=== PATIENT | male | born 1990 | race Caucasian/White ===

== ENCOUNTER 2018-04-24 17:48 | Emergency (ER) | payer OTHER ==
[2018-04-24 17:57] VITALS: O2SAT 99
[2018-04-24 19:00] LABS: HEMOGLOBIN 16.5 g/dL (12.0-18.0); MEAN CELL VOLUME 92.4 fL (80.0-94.0); MEAN CORPUSCULAR HEMOGLOBIN 32.1 pg (27.0-31.0); MEAN CORPUSCULAR HGB CONC 34.8 g/dL (33.0-37.0); MEAN PLATELET VOLUME 6.8 fL (7.2-11.7); RBC 5.14 Mil/uL (4.40-5.90); RED CELL DISTRIBUTION WIDTH 12.8 % (11.5-14.5)
[2018-04-24 19:13] LABS: ALB/GLOB RATIO 1.5 (1.0-2.1); ALBUMIN 5.3 g/dL (3.5-5.0); ALT/SGPT 135 U/L (21-72); AST/SGOT 77 U/L (17-59); BLOOD UREA NITROGEN 8 mg/dL (9-20); CALCIUM 10.2 mg/dl (8.6-10.4); GFR NON-AFRICAN AMERICAN > 60
[2018-04-24 19:17] LABS: SQUAMOUS EPITHIAL < 1 /hpf (0-5); URINE BILIRUBIN NEGATIVE (NEGATIVE); URINE BLOOD NEGATIVE (NEGATIVE); URINE CLARITY Clear (Clear); URINE GLUCOSE (UA) NORMAL (Normal); URINE LEUKOCYTE ESTERASE NEG Leu/uL (Negative); URINE PROTEIN 1+ mg/dL (NEGATIVE); URINE UROBILINOGEN NORMAL mg/dL (0.2-1.0)
[2018-04-24 19:18] LABS: URINE COLOR YELLOW (YELLOW)
[2018-04-24] MEDS ORDERED: Sodium Chloride 0.9% 1,000 ML IV ONE (19:43)
--- NOTE | 2018-04-24 20:06 | C.PDOC ---
History Of Present Illness 28 year old male, with no significant past medical history, presents to the ED for evaluation of nausea and episodes of vomiting (non-bloody/non-bilious) and diarrhea which began yesterday morning. Patient reports experiencing diffuse abdominal pain afterwards. Patient reports his last episode of vomiting was this morning. Since then, he has been able to tolerate small amounts of water. Patient denies anorexia, fever, chills, chest pain, shortness of breath, dizziness, syncope, recent travel, known sick contact, or recent use of antibiotics. Patient states he had [place] food and was drinking "a little" alcohol 2 days ago. Time Seen by Provider: 04/24/18 18:50 Chief Complaint (Nursing): Abdominal Pain History Per: Patient History/Exam Limitations: no limitations Onset/Duration Of Symptoms: Hrs Current Symptoms Are (Timing): Still Present Location Of Pain/Discomfort: Diffuse Radiation Of Pain To:: None Quality Of Discomfort: "Pain" Associated Symptoms: Nausea, Vomiting, Diarrhea. denies: Fever, Chills, Chest Pain Recent travel outside of the [place]: No Additional History Per: Patient Past Medical History Reviewed: Historical Data, Nursing Documentation, Vital Signs Vital Signs: Last Vital Signs Temp 98.6 F 04/24/18 17:55 Pulse 102 H 04/24/18 17:55 Resp 18 04/24/18 17:55 BP 132/91 H 04/24/18 17:55 Pulse Ox 99 04/24/18 17:55 - Medical History PMH: No Chronic Diseases Surgical History: No Surg Hx Family History: States: Unknown Family Hx - Social History Hx Alcohol Use: Yes Hx Substance Use: Yes (marijuana) Review Of Systems Constitutional: Negative for: Fever, Chills Cardiovascular: Negative for: Chest Pain Respiratory: Negative for: Cough, Shortness of Breath Gastrointestinal: Positive for: Nausea, Vomiting, Abdominal Pain, Diarrhea Neurological: Negative for: Dizziness Physical Exam - Physical Exam Appears: Well, Non-toxic, No Acute Distress Skin: Normal Color, Warm, Dry Head: Atraumatic, Normacephalic Eye(s): bilateral: Normal Inspection Oral Mucosa: Dry Neck: Supple Chest: Symmetrical, No Deformity, No Tenderness Cardiovascular: Rhythm Regular, No Murmur, Other (tachycardia ) Respiratory: Normal Breath Sounds, No Rales, No Rhonchi, No Wheezing Gastrointestinal/Abdominal: Bowel Sounds, Soft, No Tenderness, No Guarding, No Rebound Extremity: Normal ROM, Capillary Refill (less than 2 seconds ) Neurological/Psych: Oriented x3, Normal Speech, Normal Cognition ED Course And Treatment - Laboratory Results Result Diagrams: 04/24/18 18:55 04/24/18 18:55 O2 Sat by Pulse Oximetry: 99 (on RA) Pulse Ox Interpretation: Normal Reevaluation Time: 21:00 (Pt sleeping, states he feels better after IVF and Bentyl. Pt is stable for d/c home, is agreeable w/POC to f/u w/pcp and RTED for new, worsening or concerning symptoms.) Reassessment Condition: Improved Medical Decision Making Medical Decision Making: Progress: Bloodwork and urinalysis ordered and reviewed and d/w patient. Bentyl PO and IV Fluids given. Disposition Counseled Patient/Family Regarding: Studies Performed, Diagnosis, Need For Followup - Disposition Referrals: Tyrone Burroughs MD [Staff Provider] - Disposition: HOME/ ROUTINE Disposition Time: 21:36 Condition: GOOD Additional Instructions: OCRINA BOLANOS, thank you for letting us take care of you today. Your provider was Ayala Almazan MD and you were treated for ABD PAIN/VOMITING. The emergency medical care you received today was directed at your acute symptoms. If you were prescribed any medication, please fill it and take as directed. It may take several days for your symptoms to resolve. Return to the Emergency Department if your symptoms worsen, do not improve, or if you have any other problems. Please contact your doctor or call one of the physicians/clinics you have been referred to that are listed on the Patient Visit Information form that is included in your discharge packet. Bring any paperwork you were given at discharge with you along with any medications you are taking to your follow up visit. Our treatment cannot replace ongoing medical care by a primary care provider outside of the emergency department. Thank you for allowing the [facility] team to be part of your care today. Prescriptions: Dicyclomine [Bentyl] 20 mg PO Q6 #20 tab Instructions: Diarrhea in Adolescents and Adults, Acute Abdomen (Belly Pain), Adult (DC), Nausea and Vomiting, Adult (DC) Forms: [facility] ([place]), General Discharge Instructions - POA Present On Arrival: None - Clinical Impression Clinical Impression: Abdominal pain, Vomiting, Diarrhea, Elevated liver enzymes - Scribe Statement The provider has reviewed the documentation as recorded by the Scribe (Maribell Christensen) Provider Attestation: All medical record entries made by the Scribe were at my direction and personally dictated by me. I have reviewed the chart and agree that the record accurately reflects my personal performance of the history, physical exam, medical decision making, and the department course for this patient. I have also personally directed, reviewed, and agree with the discharge instructions and disposition.
[2018-04-24 21:22] VITALS: BP 130/80; PULSE 99; RESP 20; TEMP 100
== END 2018-04-24 21:49 | disposition home or self-care (01) ==
LOC: C.ER 17:48
DX: R10.9 Unspecified abdominal pain (principal); R11.2 Nausea with vomiting, unspecified; R19.7 Diarrhea, unspecified; R74.8 Abnormal levels of other serum enzymes
CPT/HCPCS: 80053; 81001; 85027; 99284; J7030

== ENCOUNTER 2018-04-25 17:59 | Observation (INO) | payer OTHER ==
[2018-04-25 18:04] VITALS: BMI 25.1
[2018-04-25] MEDS ORDERED: Sodium Chloride 0.9% 1,000 ML IV ONE ×2 (19:16→21:42)
[2018-04-25] MEDS ORDERED: Sodium Chloride 0.9% 1,000 ML ONE ×2 (19:17→21:49)
--- NOTE | 2018-04-25 19:19 | C.PDOC ---
History Of Present Illness 28 year old male, with no significant past medical history, presents to the ED for evaluation of vomiting (non-bloody and non-bilious) and diarrhea which began two days ago. Patient admits to drinking with his friends a couple days prior to the onset of symptoms. Patient also reports he had some Bulgarian food prior to the onset of symptoms. Patient was evaluated in the ED yesterday for similar symptoms. While in the ED, patient did not have any episodes of vomiting or diarrhea. Patient underwent workup, and was discharged after she felt better. Patient states he went home and had some crackers; he had an appetite, but was afraid to eat more because everything "goes right through" him. Patient reports he had around 35 episodes of diarrhea and had fever today. Patient notes his abdominal pain, which was diffuse yesterday, is now mostly around his epigastrium. Patient denies back pain or urinary symptoms at this time. Time Seen by Provider: 04/25/18 19:09 Chief Complaint (Nursing): Abdominal Pain History Per: Patient History/Exam Limitations: no limitations Onset/Duration Of Symptoms: Hrs Current Symptoms Are (Timing): Still Present Location Of Pain/Discomfort: Epigastric Quality Of Discomfort: "Pain" Associated Symptoms: Fever, Diarrhea Additional History Per: Patient Past Medical History Reviewed: Historical Data, Nursing Documentation, Vital Signs Vital Signs: Last Vital Signs Temp 101.1 F H 04/25/18 18:04 Pulse 112 H 04/25/18 18:04 Resp 18 04/25/18 18:04 BP 144/93 H 04/25/18 18:04 Pulse Ox 98 04/25/18 18:04 - Medical History PMH: No Chronic Diseases Surgical History: No Surg Hx Family History: States: Unknown Family Hx - Social History Hx Alcohol Use: Yes Hx Substance Use: Yes (marijuana) - Immunization History Hx Tetanus Toxoid Vaccination: No Hx Influenza Vaccination: No Hx Pneumococcal Vaccination: No Review Of Systems Constitutional: Positive for: Fever Gastrointestinal: Positive for: Abdominal Pain, Diarrhea. Negative for: Nausea, Vomiting Physical Exam - Physical Exam Appears: Well, Non-toxic, No Acute Distress, Other (well-hydrated ) Skin: Normal Color, Warm, Dry Head: Atraumatic, Normacephalic Eye(s): bilateral: Normal Inspection Oral Mucosa: Moist Neck: Supple Chest: Symmetrical, No Deformity, No Tenderness Cardiovascular: Rhythm Regular, No Murmur Respiratory: Normal Breath Sounds, No Rales, No Rhonchi, No Wheezing Gastrointestinal/Abdominal: Bowel Sounds (normal ), Soft, Tenderness (mild, epigastric ), No Guarding, No Rebound Extremity: Normal ROM, Capillary Refill (less than 2 seconds ) Neurological/Psych: Oriented x3, Normal Speech, Normal Cognition ED Course And Treatment - Laboratory Results Result Diagrams: 04/28/18 07:12 04/28/18 07:12 O2 Sat by Pulse Oximetry: 98 (on RA) Pulse Ox Interpretation: Normal - CT Scan/US CT A/P Other Rad Studies (CT/US): Read By Radiologist, Radiology Report Reviewed CT/US Interpretation: EXAM: CT Abdomen and Pelvis with IV contrast. CLINICAL HISTORY: Nausea, vomiting and diarrhea. TECHNIQUE: Axial computed tomography images of the abdomen and pelvis with intravenous contrast. CONTRAST: With; VISI 100 MLS. COMPARISON: None provided. FINDINGS: LUNG BASES: The lung bases appear clear. No pleural effusions are seen. LIVER: Unremarkable. GALLBLADDER AND BILE DUCTS: The gallbladder appears within normal limits. No radioopaque gallstones are seen. No biliary ductal dilatation is evident. PANCR EAS: Unremarkable. SPLEEN: Unremarkable. ADRENAL GLANDS: Unremarkable. KIDNEYS, URETERS, AND BLADDER: The kidneys appear within normal limits. There is no hydronephrosis or hydroureter. No urinary calculi are seen. STOMACH AND BOWEL: Thick walled fluid filled duodenum and loops of jejunum as well as ileum compatible with enteritis. Thick walled fluid filled colon is noted with involvement of all segments compatible with diffuse pancolitis. Infectious and inflammatory etiologies are considered. APPENDIX: No evidence of acute appendicitis on CT examination. PERITONEUM: No free fluid. No free air. LYMPH NODES: No lymphadenopathy is evident. REPRODUCTIVE: Unremarkable as visu alized. VASCULATURE: No evidence of abdominal aortic aneurysm. BONES: No aggressive appearing osseous lesion. No acute osseous pathology evident. IMPRESSION: Enteritis and pancolitis. Infectious and inflammatory etiologies are considered. Medical Decision Making Medical Decision Making: Progress: Patient with temperature of 101.1F in the ED. Bloodwork, CT A/P ordered and reviewed. K-Dur PO, Morphine IVP, Tylenol PO, Zofran IVP and IV Fluids given. 23:20 CT results were discussed with patient. 23:[address] results discussed with Dr. Tracie Christensen, who accepts the patient for admission. Patient agrees with plan. Disposition Counseled Patient/Family Regarding: Studies Performed, Diagnosis - Disposition Disposition: HOSPITALIZED Disposition Time: 23:58 Condition: STABLE - Clinical Impression Clinical Impression: Pancolitis, Enteritis, Hypokalemia, Bandemia - Scribe Statement The provider has reviewed the documentation as recorded by the Scribe (Maribell Christensen) Provider Attestation: All medical record entries made by the Scribe were at my direction and personally dictated by me. I have reviewed the chart and agree that the record accurately reflects my personal performance of the history, physical exam, medical decision making, and the department course for this patient. I have also personally directed, reviewed, and agree with the discharge instructions and disposition.
[2018-04-25] MEDS ORDERED: Iodixanol 320 MG/ML 100 ML BOTTLE IV ONE (19:26)
[2018-04-25 19:48] LABS: BASO % 0.5 % (0.0-2.0); EOS % 0.2 % (0.0-4.0); HEMOGLOBIN 16.3 g/dL (12.0-18.0); LYMPH # 0.6 K/uL (1.0-4.3); LYMPH % 9.4 % (20.0-40.0); MEAN CELL VOLUME 91.5 fL (80.0-94.0); MEAN CORPUSCULAR HEMOGLOBIN 32.2 pg (27.0-31.0); MEAN CORPUSCULAR HGB CONC 35.2 g/dL (33.0-37.0); MEAN PLATELET VOLUME 7.4 fL (7.2-11.7); MONO # 0.5 K/uL (0.0-0.8); MONO % 8.5 % (0.0-10.0); NEUT # 4.9 K/uL (1.8-7.0); NEUT % 81.4 % (50.0-75.0); NRBC % 0.2 % (0.0-2.0); PLATELET COUNT 241 K/uL (130-400); RBC 5.08 Mil/uL (4.40-5.90); RED CELL DISTRIBUTION WIDTH 12.8 % (11.5-14.5)
[2018-04-25 20:23] LABS: BANDS 38 % (0-2); EOSINOPHIL 1 % (0-4); LYMPHOCYTE 8 % (20-40); MONOCYTE 4 % (0-10); NEUTROPHIL 49 % (50-75); PLATELET ESTIMATE NORMAL (NORMAL); TOTAL CELLS COUNTED 100
[2018-04-25 20:41] LABS: VENOUS BLOOD GAS BASE EXCESS -2.2 mmol/L (0.0-2.0); VENOUS BLOOD GAS PCO2 37 mmHg (40-60); VENOUS BLOOD GAS PO2 49 mm/Hg (30-55); VENOUS BLOOD PH 7.39 (7.32-7.43)
[2018-04-25 21:28] LABS: ALB/GLOB RATIO 1.6 (1.0-2.1); ALBUMIN 4.9 g/dL (3.5-5.0); ALT/SGPT 104 U/L (21-72); AST/SGOT 77 U/L (17-59); BLOOD UREA NITROGEN 5 mg/dL (9-20); CALCIUM 10.1 mg/dl (8.6-10.4); GFR NON-AFRICAN AMERICAN > 60; LIPASE 146 U/L (23-300)
[2018-04-25] MEDS ORDERED: Potassium Chloride 20 mEq ER Tab PO STA (21:42)
[2018-04-25] MEDS ORDERED: Potassium Chloride 20 mEq ER Tab PO ONE (21:50)
[2018-04-25] MEDS ORDERED: metroNIDAZOLE IV 500 mg/100 ml 500 MG/100 ML BAG IVPB STA (23:32)
[2018-04-25] MEDS ORDERED: Ciprofloxacin 400mg/200ml D5W 400 MG/200 ML BAG IVPB STA (23:32)
[2018-04-25] MEDS ORDERED: metroNIDAZOLE IV 500 mg/100 ml 500 MG/100 ML BAG ONE (23:44)
[2018-04-25] MEDS ORDERED: Ciprofloxacin 400mg/200ml D5W 400 MG/200 ML BAG IVPB ONE (23:45)
--- NOTE | 2018-04-26 10:31 | CT ---
Date of service: 04/25/2018 PROCEDURE: CT Abdomen and Pelvis with intravenous contrast HISTORY: Abdominal pain COMPARISON: None. TECHNIQUE: Multiple contiguous axial images were performed through the abdomen and pelvis with the use of intravenous contrast. Subsequently, sagittal and coronal images were obtained. radiation dose: Total exam DLP = 374.79 mGy-cm. This CT exam was performed using one or more of the following dose reduction techniques: Automated exposure control, adjustment of the mA and/or kV according to patient size, and/or use of iterative reconstruction technique. FINDINGS: LOWER THORAX: Unremarkable. LIVER: Prominent liver with diffuse fatty infiltration. GALLBLADDER AND BILE DUCTS: Unremarkable. PANCREAS: Unremarkable. No gross lesion or ductal dilatation. SPLEEN: Unremarkable. ADRENALS: Unremarkable. No mass. KIDNEYS AND URETERS: Unremarkable. No hydronephrosis. No solid mass. VASCULATURE: Unremarkable. No aortic aneurysm. No aortic atherosclerotic calcification or mural plaque present. BOWEL: Diffuse thickening of the colon consistent with a pancolitis possibly related to infectious versus inflammatory versus ischemic changes. Clinical correlation. Post treatment interval follow-up is recommended. Few thickened, distended, and dilated loops of small bowel within the mid to lower abdomen which may represent an underlying enteritis. APPENDIX: Grossly preserved. Perhaps some mild reactive thickening from the adjacent pancolitis. PERITONEUM: Unremarkable. No free fluid. No free air. LYMPH NODES: Few shotty para-aortic and inguinal lymph nodes. Shotty mesenteric lymph nodes. BLADDER: Underdistended and or mildly thick-walled urinary bladder. REPRODUCTIVE: Unremarkable. BONES: Degenerative changes in the spine. OTHER FINDINGS: None. IMPRESSION: 1. Diffuse thickening of the colon consistent with a pancolitis possibly related to infectious versus inflammatory versus ischemic changes. Clinical correlation. Post treatment interval follow-up is recommended. 2. Few thickened, distended, and dilated loops of small bowel within the mid to lower abdomen which may represent an underlying enteritis. Clinical correlation. 3. Underdistended and or mildly thick-walled urinary bladder. 4. Prominent liver with diffuse fatty infiltration. A preliminary report was generated at 11:16 p.m. on 04/25/[address] Jered Alaniz from [employer].
[2018-04-26] MEDS: Sodium Chloride 0.9% 1,000 ML IV SCH (14:49)
[2018-04-26] MEDS ORDERED: Potassium Chloride 20 mEq ER Tab PO STA (16:30)
[2018-04-26] MEDS: metroNIDAZOLE IV 500 mg/100 ml 500 MG/100 ML BAG IVPB SCH (18:03)
--- NOTE | 2018-04-26 18:32 | CP.PCM.HP ---
Past Patient History - Past Social History Smoking Status: Light Smoker < 10 Cigarettes Daily - GASTROINTESTINAL Hx Gastrointestinal Disorders: Yes Other/Comment: ''Elevated liver enzymes'' - PSYCHIATRIC Hx Substance Use: Yes (marijuana) - SURGICAL HISTORY Hx Surgeries: No - ANESTHESIA Hx Anesthesia: No Meds Allergies/Adverse Reactions: Allergies Allergy/AdvReac Type Severity Reaction Status Date / Time No Known Allergies Allergy Verified 04/25/18 18:03 Physical Exam - Constitutional Appears: Well - Head Exam Head Exam: ATRAUMATIC, NORMAL INSPECTION, NORMOCEPHALIC - Eye Exam Eye Exam: EOMI, Normal appearance, PERRL Pupil Exam: NORMAL ACCOMODATION, PERRL - ENT Exam ENT Exam: Mucous Membranes Moist, Normal Exam - Neck Exam Neck exam: Positive for: Normal Inspection - Respiratory Exam Respiratory Exam: Decreased Breath Sounds - Cardiovascular Exam Cardiovascular Exam: REGULAR RHYTHM, +S1, +S2 - GI/Abdominal Exam GI & Abdominal Exam: Diminished Bowel Sounds, Soft - Rectal Exam Rectal Exam: Deferred Results - Vital Signs Recent Vital Signs: Last Vital Signs Temp 98.1 F 04/26/18 15:00 Pulse 78 04/26/18 15:00 Resp 20 04/26/18 15:00 BP 125/84 04/26/18 15:00 Pulse Ox 98 04/26/18 15:00 - Labs Result Diagrams: 04/25/18 19:41 04/25/18 21:14 Labs: Laboratory Results - last 24 hr 04/25/18 04/25/18 04/25/18 19:41 20:38 21:14 WBC 6.0 RBC 5.08 Hgb 16.3 Hct 46.4 MCV 91.5 MCH 32.2 H MCHC 35.2 RDW 12.8 Plt Count 241 MPV 7.4 Neut % (Auto) 81.4 H Lymph % (Auto) 9.4 L [place] % (Auto) 8.5 Eos % (Auto) 0.2 Baso % (Auto) 0.5 Neut # (Auto) 4.9 Lymph # (Auto) 0.6 L [place] # (Auto) 0.5 Eos # (Auto) 0.0 Baso # (Auto) 0.0 Neutrophils % (Manual) 49 L Band Neutrophils % 38 H* Lymphocytes % (Manual) 8 L Monocytes % (Manual) 4 Eosinophils % (Manual) 1 Platelet Estimate Normal pO2 49 VBG pH 7.39 VBG pCO2 37 L VBG HCO3 22.8 VBG Total CO2 23.5 VBG O2 Sat (Calc) 89.6 H VBG Base Excess -2.2 L VBG Potassium 3.2 L Sodium 135.0 136 Chloride 103.0 93 L Glucose 90 Lactate 1.2 Potassium 3.2 L Carbon Dioxide 26 Anion Gap 20 BUN 5 L Creatinine 0.8 Est GFR ( Amer) > 60 Est GFR (Non-Af Amer) > 60 Random Glucose 88 Calcium 10.1 Total Bilirubin 0.7 AST 77 H ALT 104 H D Alkaline Phosphatase 68 Total Protein 8.0 Albumin 4.9 Globulin 3.1 Albumin/Globulin Ratio 1.6 Lipase 146 Venous Blood Potassium 3.2 L
[2018-04-26] MEDS: Ciprofloxacin 400mg/200ml D5W 400 MG/200 ML BAG IVPB SCH (19:18)
[2018-04-27] MEDS: metroNIDAZOLE IV 500 mg/100 ml 500 MG/100 ML BAG IVPB SCH ×3 (00:22→16:28)
[2018-04-27] MEDS: Sodium Chloride 0.9% 1,000 ML IV SCH ×2 (03:50→18:12)
[2018-04-27] MEDS: Ciprofloxacin 400mg/200ml D5W 400 MG/200 ML BAG IVPB SCH ×2 (05:10→18:00)
--- NOTE | 2018-04-27 09:02 | CP.PCM.CON ---
<NixonnelsonManuelito - Last Filed: 04/27/18 08:54> History of Present Illness - History of Present Illness History of Present Illness: GI Fellow PGY4, consult note. Paulina Gordon is a pleasant and anxious 28M with no significant medical history presenting with acute diarrhea and vomiting. Patient was previously healthy last (5 days ago) when he admits to having ukrainian food. The next morning patient had severe vomiting episodes followed by severe diarrhea. Patient Denied seeing blood until 2 days later after "30" episodes of diarrhea. Patient was evaluated at ED and found to have fever, and abnormal CT scan of small/large bowel. He was started on cipro/flagyl. Paulina states his vomiting and diarrhea are improving become less frequent. Last Vomiting was Thursday. Last diarrhea was last night. He admits some mild epigastric pain at this time. Denies weight loss, rash, joint pains, recent travel, recent abx use, sick contacts. PMHx - none PSHx - none FMHx - no 1st degree relatives with GI cancers. No family hx of IBD. SocHx - Drinks regularly. Smoke 1/2 PPD. 12pt ROS completed and negative except for above. Past Patient History - Past Social History Smoking Status: Light Smoker < 10 Cigarettes Daily - GASTROINTESTINAL Hx Gastrointestinal Disorders: Yes Other/Comment: ''Elevated liver enzymes'' - PSYCHIATRIC Hx Substance Use: Yes (marijuana) - SURGICAL HISTORY Hx Surgeries: No - ANESTHESIA Hx Anesthesia: No Meds Allergies/Adverse Reactions: Allergies Allergy/AdvReac Type Severity Reaction Status Date / Time No Known Allergies Allergy Verified 04/25/18 18:03 - Medications Medications: Current Medications Sodium Chloride (Sodium Chloride 0.9%) 1,000 mls @ 75 mls/hr IV .[id number] JERARDO Last Admin: 04/27/18 03:50 Dose: Not Given Ciprofloxacin (Cipro 400mg/200ml Dsw) 400 mg in 200 mls @ 133 mls/hr IVPB Q12H JERARDO; Protocol Last Admin: 04/27/18 05:10 Dose: 133 mls/hr Metronidazole (Flagyl) 500 mg in 100 mls @ 100 mls/hr IVPB Q8H JERARDO; Protocol Last Admin: 04/27/18 08:19 Dose: 100 mls/hr Ondansetron HCl (Zofran Inj) 4 mg IVP Q6H PRN PRN Reason: Nausea/Vomiting Physical Exam - Constitutional Appears: Well, No Acute Distress - Head Exam Head Exam: NORMAL INSPECTION, NORMOCEPHALIC - Eye Exam Eye Exam: EOMI, Normal appearance - ENT Exam ENT Exam: Mucous Membranes Moist, Normal Exam - Respiratory Exam Respiratory Exam: Clear to Auscultation Bilateral, NORMAL BREATHING PATTERN - Cardiovascular Exam Cardiovascular Exam: REGULAR RHYTHM, +S1, +S2 - GI/Abdominal Exam GI & Abdominal Exam: Normal Bowel Sounds, Soft, Tenderness. absent: Organomegaly - Extremities Exam Extremities exam: Positive for: normal inspection - Neurological Exam Neurological exam: Alert, CN II-XII Intact, Normal Gait, Oriented x3 - Psychiatric Exam Psychiatric exam: Normal Affect, Normal Mood - Skin Skin Exam: Dry, Normal Color Results - Vital Signs Recent Vital Signs: Last Vital Signs Temp 97.6 F 04/27/18 07:00 Pulse 76 04/27/18 07:00 Resp 20 04/27/18 07:00 BP 136/87 04/27/18 07:00 Pulse Ox 97 04/27/18 07:00 - Labs Result Diagrams: 04/25/18 19:41 04/25/18 21:14 Assessment & Plan - Assessment and Plan (Free Text) Assessment: #Acute diarrhea- likely infectious gastroenteritis, unclear bacterial vs viral #Abnormal CT scan - Segmental colitis with focal areas of enteritis #Elevated liver enzymes PLAN: - Labs and imaging reviewed. Abnormal thickened colon and small bowel. Diffuse fatty liver. - Continue abx in setting of severe symptoms, fever, bandemia - Start full liquid diet - Recommend follow up with GI as outpt to follow symptoms and rule out IBD - If patient remains in hospital tomorrow, recheck liver tests - Supportive care, antiemetics - Stool culture - Advised patient to quid alcohol and smoking - Date & Time Date: 04/27/18 Time: 09:02 <Evin Martinez - Last Filed: 04/27/18 09:16> Meds - Medications Medications: Current Medications Sodium Chloride (Sodium Chloride 0.9%) 1,000 mls @ 75 mls/hr IV .[id number] [facility] Last Admin: 04/27/18 03:50 Dose: Not Given Ciprofloxacin (Cipro 400mg/200ml Dsw) 400 mg in 200 mls @ 133 mls/hr IVPB Q12H JERARDO; Protocol Last Admin: 04/27/18 05:10 Dose: 133 mls/hr Metronidazole (Flagyl) 500 mg in 100 mls @ 100 mls/hr IVPB Q8H JERARDO; Protocol Last Admin: 04/27/18 08:19 Dose: 100 mls/hr Ondansetron HCl (Zofran Inj) 4 mg IVP Q6H PRN PRN Reason: Nausea/Vomiting Results - Vital Signs Recent Vital Signs: Last Vital Signs Temp 97.6 F 04/27/18 07:00 Pulse 76 04/27/18 07:00 Resp 20 04/27/18 07:00 BP 136/87 04/27/18 07:00 Pulse Ox 97 04/27/18 07:00 - Labs Result Diagrams: 04/25/18 19:41 04/25/18 21:14 Attending/Attestation - Attestation I have personally seen and examined this patient.: Yes I have fully participated in the care of the patient.: Yes I have reviewed all pertinent clinical information: Yes Notes (Text): 04/27/18 09:11 I have seen and examined patient with GI fellow. Agree with above documentation with the following additions. In brief, this is a 28 year old male without significant past medical history who presents to hospital with complaint of abdominal pain and diarrhea which began 4 days ago. Prior to this he was in usual state of health. He describes eating [place]or[place] food the day before symptoms began and subsequently had LUQ abdominal pain, 4/10 intensity which was associated with multiple episodes of non-bloody diarrhea and emesis. He denies sick contacts, similar prior episodes, recent travel, or antibiotic use. He denies fever/chills, weight loss. No prior endoscopic evaluation. Today he is seen ambulating in hallway and room, appears comfortable. He admits to one loose bowel movement this morning with blood. Abdominal pain Diarrhea Transaminitis CT imaging reviewed by me showing diffuse rider-colitis along with thickening of small bowel loops consistent with enteritis - Full liquid diet as tolerated - Obtain stool studies - Continue with antibiotic therapy - Obtain viral hepatitis panel, continue to monitor LFTs - Will continue to monitor patient clinical course
[2018-04-27 11:18] LABS: BASO # 0.1 K/uL (0.0-0.2); EOS # 0.2 K/uL (0.0-0.7); EOS % 3.7 % (0.0-4.0); HEMOGLOBIN 14.8 g/dL (12.0-18.0); LYMPH % 19.3 % (20.0-40.0); MEAN CELL VOLUME 91.7 fL (80.0-94.0); MEAN CORPUSCULAR HEMOGLOBIN 32.2 pg (27.0-31.0); MEAN CORPUSCULAR HGB CONC 35.2 g/dL (33.0-37.0); MEAN PLATELET VOLUME 7.2 fL (7.2-11.7); MONO # 0.7 K/uL (0.0-0.8); MONO % 14.5 % (0.0-10.0); NEUT # 3.1 K/uL (1.8-7.0); NEUT % 61.5 % (50.0-75.0); NRBC % 0.2 % (0.0-2.0); RBC 4.58 Mil/uL (4.40-5.90); RED CELL DISTRIBUTION WIDTH 12.8 % (11.5-14.5); WHITE BLOOD COUNT 5.1 K/uL (4.8-10.8)
--- NOTE | 2018-04-27 11:45 | CP.PCM.PN ---
Subjective - Date & Time of Evaluation Date of Evaluation: 04/27/18 Time of Evaluation: 10:00 - Subjective Subjective: clinically same Objective - Vital Signs/Intake and Output Vital Signs (last 24 hours): Temp Pulse Resp BP Pulse Ox 97.6 F 76 20 136/87 97 04/27/18 07:00 04/27/18 07:00 04/27/18 07:00 04/27/18 07:00 04/27/18 07:00 Intake and Output: 04/27/18 04/27/18 06:59 18:59 Intake Total 300 Balance 300 - Medications Medications: Current Medications Sodium Chloride (Sodium Chloride 0.9%) 1,000 mls @ 75 mls/hr IV .[id number] EJRARDO Last Admin: 04/27/18 03:50 Dose: Not Given Ciprofloxacin (Cipro 400mg/200ml Dsw) 400 mg in 200 mls @ 133 mls/hr IVPB Q12H JERARDO; Protocol Last Admin: 04/27/18 05:10 Dose: 133 mls/hr Metronidazole (Flagyl) 500 mg in 100 mls @ 100 mls/hr IVPB Q8H JERARDO; Protocol Last Admin: 04/27/18 08:19 Dose: 100 mls/hr Ondansetron HCl (Zofran Inj) 4 mg IVP Q6H PRN PRN Reason: Nausea/Vomiting - Labs Labs: 04/27/18 10:52 04/25/18 21:14 - Constitutional Appears: Well - Head Exam Head Exam: ATRAUMATIC, NORMAL INSPECTION, NORMOCEPHALIC - Eye Exam Eye Exam: EOMI, Normal appearance, PERRL Pupil Exam: NORMAL ACCOMODATION, PERRL - ENT Exam ENT Exam: Mucous Membranes Moist, Normal Exam - Neck Exam Neck Exam: Full ROM, Normal Inspection. absent: Lymphadenopathy - Respiratory Exam Respiratory Exam: Decreased Breath Sounds - Cardiovascular Exam Cardiovascular Exam: REGULAR RHYTHM, +S1, +S2 - GI/Abdominal Exam GI & Abdominal Exam: Soft, Diminished Bowel Sounds - Rectal Exam Rectal Exam: Deferred
[2018-04-27 12:10] LABS: ALB/GLOB RATIO 1.5 (1.0-2.1); ALBUMIN 4.1 g/dL (3.5-5.0); ALT/SGPT 122 U/L (21-72); AST/SGOT 143 U/L (17-59); BLOOD UREA NITROGEN 5 mg/dL (9-20); CALCIUM 9.4 mg/dl (8.6-10.4); GFR NON-AFRICAN AMERICAN > 60
[2018-04-27 12:32] LABS: HEPATITIS B SURFACE AG Negative (NEGATIVE)
[2018-04-27 12:38] LABS: HEPATITIS A IGM NEGATIVE (NEGATIVE); HEPATITIS B CORE AB NEGATIVE (NEGATIVE)
[2018-04-27 12:50] LABS: HEPATITIS C ANTIBODY NEGATIVE (NEGATIVE)
[2018-04-28] MEDS: Ciprofloxacin 400mg/200ml D5W 400 MG/200 ML BAG IVPB SCH (05:22)
[2018-04-28 07:25] LABS: HEMOGLOBIN 14.9 g/dL (12.0-18.0); MEAN CELL VOLUME 92.1 fL (80.0-94.0); MEAN CORPUSCULAR HEMOGLOBIN 31.6 pg (27.0-31.0); MEAN CORPUSCULAR HGB CONC 34.3 g/dL (33.0-37.0); MEAN PLATELET VOLUME 7.1 fL (7.2-11.7); RBC 4.72 Mil/uL (4.40-5.90); RED CELL DISTRIBUTION WIDTH 12.7 % (11.5-14.5); WHITE BLOOD COUNT 5.8 K/uL (4.8-10.8)
[2018-04-28 07:54] LABS: ALB/GLOB RATIO 1.3 (1.0-2.1); ALBUMIN 3.7 g/dL (3.5-5.0); ALT/SGPT 131 U/L (21-72); AST/SGOT 136 U/L (17-59); BLOOD UREA NITROGEN 4 mg/dL (9-20); CALCIUM 9.4 mg/dl (8.6-10.4); GFR NON-AFRICAN AMERICAN > 60
--- NOTE | 2018-04-28 07:54 | CP.PCM.PN ---
<Manuelito Ledbetter - Last Filed: 04/28/18 13:06> Subjective - Date & Time of Evaluation Date of Evaluation: 04/28/18 Time of Evaluation: 07:49 - Subjective Subjective: Patient is doing well today. No complaints. Last BM was last night at 9PM and was semi-solid and without blood. No vomiting. Tolerated Full liquid diet. Denie s abdominal pain. Objective - Vital Signs/Intake and Output Vital Signs (last 24 hours): Temp Pulse Resp BP Pulse Ox 97.7 F 79 18 120/74 97 04/27/18 23:27 04/27/18 23:27 04/27/18 23:27 04/27/18 23:27 04/27/18 23:27 Intake and Output: 04/28/18 04/28/18 06:59 18:59 Intake Total 1400 840 Balance 1400 840 - Medications Medications: Current Medications Sodium Chloride (Sodium Chloride 0.9%) 1,000 mls @ 75 mls/hr IV .[id number] JERARDO Last Admin: 04/27/18 18:12 Dose: 75 mls/hr Ciprofloxacin (Cipro 400mg/200ml Dsw) 400 mg in 200 mls @ 133 mls/hr IVPB Q12H JERARDO; Protocol Last Admin: 04/28/18 05:22 Dose: 133 mls/hr Metronidazole (Flagyl) 500 mg in 100 mls @ 100 mls/hr IVPB Q8H JERARDO; Protocol Last Admin: 04/28/18 00:00 Dose: 100 mls/hr Nicotine (Nicoderm Cq) 1 patch TD DAILY JERARDO Last Admin: 04/27/18 18:04 Dose: 1 patch Ondansetron HCl (Zofran Inj) 4 mg IVP Q6H PRN PRN Reason: Nausea/Vomiting Last Admin: 04/27/18 19:48 Dose: 4 mg - Labs Labs: 04/28/18 07:12 04/27/18 10:52 - Constitutional Appears: Non-toxic, No Acute Distress - Eye Exam Eye Exam: EOMI, Normal appearance - ENT Exam ENT Exam: Mucous Membranes Moist, Normal Exam - Respiratory Exam Respiratory Exam: Clear to Ausculation Bilateral, NORMAL BREATHING PATTERN - Cardiovascular Exam Cardiovascular Exam: REGULAR RHYTHM, +S1, +S2 - GI/Abdominal Exam GI & Abdominal Exam: Soft, Normal Bowel Sounds. absent: Tenderness - Extremities Exam Extremities Exam: Normal Inspection. absent: Pedal Edema - Neurological Exam Neurological Exam: Alert, Awake, Oriented x3 - Psychiatric Exam Psychiatric exam: Normal Affect, Normal Mood - Skin Skin Exam: Dry, Normal Color Assessment and Plan - Assessment and Plan (Free Text) Assessment: #Acute diarrhea- likely infectious gastroenteritis, unclear bacterial vs viral #Abnormal CT scan - Segmental colitis with focal areas of enteritis #Elevated liver enzymes PLAN: - Labs and imaging reviewed. Abnormal thickened colon and small bowel. Diffuse fatty liver. - Continue abx in setting of severe symptoms, fever, bandemia - Advance to soft diet. - Recommend follow up with GI as outpt to follow symptoms and rule out IBD - Recommend repeat Liver tests as outpt to verify downtrend. - Hepatitis panel negative - Stool culture pending. Blood culture negative. - Advised patient to quit alcohol and smoking <Evin Martinez - Last Filed: 04/28/18 15:45> Objective - Vital Signs/Intake and Output Vital Signs (last 24 hours): Temp Pulse Resp BP Pulse Ox 97.2 F L 62 20 109/63 98 04/28/18 08:00 04/28/18 08:00 04/28/18 08:00 04/28/18 08:00 04/28/18 12:00 Intake and Output: 04/28/18 04/28/18 06:59 18:59 Intake Total 1400 840 Balance 1400 840 - Labs Labs: 04/28/18 07:12 04/28/18 07:12 Attending/Attestation - Attestation I have personally seen and examined this patient.: Yes I have fully participated in the care of the patient.: Yes I have reviewed all pertinent clinical information, including history, physical exam and plan: Yes Notes (Text): 04/28/18 15:43 I have seen and examined patient with GI fellow. No acute events overnight, he is seem ambulating in room and appears comfortable. He had one loose bowel movement overnight without presence of blood. Tolerating PO diet without difficulty. Abdominal pain Colitis - presumed infectious etiology Transaminitis - viral hepatitis panel negative - Low residue diet as tolerated - Continue with antibiotic therapy to complete 7 day course - Continue to monitor LFTs, ETOH avoidance - From GI standpoint ok to discharge patient home with subsequent outpatient follow up
[2018-04-28 08:34] VITALS: BP 109/63; PULSE 62; RESP 20; TEMP 97.2
[2018-04-28] MEDS: metroNIDAZOLE IV 500 mg/100 ml 500 MG/100 ML BAG IVPB SCH ×2 (08:37)
--- NOTE | 2018-04-28 13:11 | CP.PCM.PN ---
Subjective - Date & Time of Evaluation Date of Evaluation: 04/28/18 Time of Evaluation: 13:11 - Subjective Subjective: PATIENT SEEN AND EXAMINED AT THE BEDSIDE Objective - Vital Signs/Intake and Output Vital Signs (last 24 hours): Temp Pulse Resp BP Pulse Ox 97.2 F L 62 20 109/63 97 04/28/18 08:00 04/28/18 08:00 04/28/18 08:00 04/28/18 08:00 04/28/18 08:00 Intake and Output: 04/28/18 04/28/18 06:59 18:59 Intake Total 1400 840 Balance 1400 840 - Medications Medications: Current Medications Sodium Chloride (Sodium Chloride 0.9%) 1,000 mls @ 75 mls/hr IV .[id number] JERARDO Last Admin: 04/27/18 18:12 Dose: 75 mls/hr Ciprofloxacin (Cipro 400mg/200ml Dsw) 400 mg in 200 mls @ 133 mls/hr IVPB Q12H JERARDO; Protocol Last Admin: 04/28/18 05:22 Dose: 133 mls/hr Metronidazole (Flagyl) 500 mg in 100 mls @ 100 mls/hr IVPB Q8H JERARDO; Protocol Last Admin: 04/28/18 08:37 Dose: 100 mls/hr Nicotine (Nicoderm Cq) 1 patch TD DAILY JERARDO Last Admin: 04/28/18 10:50 Dose: Not Given Ondansetron HCl (Zofran Inj) 4 mg IVP Q6H PRN PRN Reason: Nausea/Vomiting Last Admin: 04/27/18 19:48 Dose: 4 mg - Labs Labs: 04/28/18 07:12 04/28/18 07:12 Assessment and Plan - Assessment and Plan (Free Text) Assessment: FOLLOW UP WITH DR Tracie AG OR PMD IN 1-2 WEEK ---CALL FOR APPOINTMENT FOLLOW UP WITH DR GONZALEZ ----CALL FOR APPOINTMENT F/U BLOOD WORK HEPATIC PANEL IN A WEEK CONTINUE HOME MEDICATION NEW PRESCRIPTION GIVNE LEVAQUIN 500 MG BY MOUTH DAILY FLORASTOR 250 MG BY MOUTH DAILY ACTIVITY TOLERATED CALL DR Tracie AG OR GO TO THE EMERGENCY ROOM IF SYMPTOM RETURN OR WORSENING
[2018-04-28 13:15] VITALS: O2SAT 98
--- NOTE | 2018-04-28 14:16 | CP.PCM.PN ---
Subjective - Date & Time of Evaluation Date of Evaluation: 04/28/18 Time of Evaluation: 10:45 - Subjective Subjective: clinically same Objective - Vital Signs/Intake and Output Vital Signs (last 24 hours): Temp Pulse Resp BP Pulse Ox 97.2 F L 62 20 109/63 98 04/28/18 08:00 04/28/18 08:00 04/28/18 08:00 04/28/18 08:00 04/28/18 12:00 Intake and Output: 04/28/18 04/28/18 06:59 18:59 Intake Total 1400 840 Balance 1400 840 - Medications Medications: Current Medications Sodium Chloride (Sodium Chloride 0.9%) 1,000 mls @ 75 mls/hr IV .[id number] JERARDO Last Admin: 04/27/18 18:12 Dose: 75 mls/hr Ciprofloxacin (Cipro 400mg/200ml Dsw) 400 mg in 200 mls @ 133 mls/hr IVPB Q12H JERARDO; Protocol Last Admin: 04/28/18 05:22 Dose: 133 mls/hr Metronidazole (Flagyl) 500 mg in 100 mls @ 100 mls/hr IVPB Q8H JERARDO; Protocol Last Admin: 04/28/18 08:37 Dose: 100 mls/hr Nicotine (Nicoderm Cq) 1 patch TD DAILY JERARDO Last Admin: 04/28/18 10:50 Dose: Not Given Ondansetron HCl (Zofran Inj) 4 mg IVP Q6H PRN PRN Reason: Nausea/Vomiting Last Admin: 04/27/18 19:48 Dose: 4 mg - Labs Labs: 04/28/18 07:12 04/28/18 07:12 - Constitutional Appears: Well - Head Exam Head Exam: ATRAUMATIC, NORMAL INSPECTION, NORMOCEPHALIC - Eye Exam Eye Exam: EOMI, Normal appearance, PERRL Pupil Exam: NORMAL ACCOMODATION, PERRL - ENT Exam ENT Exam: Mucous Membranes Moist, Normal Exam - Neck Exam Neck Exam: Full ROM, Normal Inspection. absent: Lymphadenopathy - Respiratory Exam Respiratory Exam: Decreased Breath Sounds - Cardiovascular Exam Cardiovascular Exam: REGULAR RHYTHM, +S1, +S2 - GI/Abdominal Exam GI & Abdominal Exam: Soft, Diminished Bowel Sounds - Rectal Exam Rectal Exam: Deferred
== END 2018-04-28 15:10 | disposition home or self-care (01) ==
LOC: C.ER 17:59 → C.5S 23:35
PROVIDERS: ADMIT Internal Medicine Nephrology; ATTEND Internal Medicine Nephrology
DX: A09 Infectious gastroenteritis and colitis, unspecified (principal); D72.825 Bandemia; E87.6 Hypokalemia; F17.210 Nicotine dependence, cigarettes, uncomplicated
CPT/HCPCS: 36415; 74177; 80053; 80074; 82803; 83690; 85025; 85027; 87040; 87045; 96360; 96365; 96374; 99285; G0378; J0744; J2270; J2405; J3480; J7030; Q9967